=== PATIENT | female | born 1995 | race Two or more races ===

== ENCOUNTER 2017-02-21 19:35 | Emergency (ER) | payer BC ==
--- NOTE | ~2017-02-21 | EKG ---
PATIENT: SONG SOLIMAN UNIT #: [id number] Ventricular Rate: 93 BPM Atrial Rate: 93 BPM P-R Interval: 114 ms QRS Duration: 62 ms Q-T Interval: 318 ms QTC Calculation(Bezet): 395 ms P Gillham: 67 degrees Calculated R Gillham: 79 degrees Calculated T Gillham: 72 degrees Diagnosis Line: Normal sinus rhythm Diagnosis Line: Normal ECG Diagnosis Line: No previous ECGs available Diagnosis Line: Confirmed by DOC BRONSON MD ([id number]) on 02/22/2017 Diagnosis Line: 5:51:52 PM INTERPRETING MD: AIYANA OCASIO
--- NOTE | ~2017-02-21 | CT71 ---
[facility] A Service [facility] RADIOLOGY TEXT RESULTS PATIENT: SONG SOLIMAN LOCATION: SED : [birth year] UNIT #: [id number] AGE: [address]: Wolf Garay MD SEX: F ORDER DR: [id number] [place] [id number] E MR#: [id number] Acc #: [id number] NAME: SONG SOLIMAN : 1995 SEX: F STUDY DATE/TIME: 02/21/2017 20:44 UNIT: SED ROOM: STUDY DESCRIPTION: CT Head Wo Contrast Attending Physician: Wolf Garay M.D. Ordering Physician: Wolf Garay M.D. Primary Care Physician: No Primary Care Physician MEDICAL IMAGING REPORT This report is preliminary unless electronic signature is present. EXAM CT head, 02/21/2017. HISTORY Headache, syncope episode 17:[address] head performed of skull base through vertex without intravenous contrast. This CT exam was performed with one or more of the following radiation dose reduction techniques: automatic exposure control, adjustment of mA and/or kV according to patient size, and iterative reconstruction. COMPARISON No comparisons. FINDINGS Brainstem unremarkable. Cerebellum and cerebral hemispheres show normal joe matter-white matter differentiation. No hemorrhage. No evidence of acute cortical ischemia. Midline structures nondisplaced. Basal ganglia intact. Ventricles, cisterns and sulci normal in size and contour. No intra or extraaxial mass effect or abnormal intracranial fluid collection. Intraorbital soft tissues unremarkable. Visualized paranasal sinuses and mastoid air cells clear. No fracture. IMPRESSION 1. Normal CT head. If the patient has ongoing neurologic symptoms, consider follow up imaging. Dictated by... [facility] A Service [facility] RADIOLOGY TEXT RESULTS PATIENT: SONG SOLIMAN LOCATION: SED : [birth year] UNIT #: [id number] AGE: [address]: Wolf Garay MD SEX: F ORDER DR: Wolf West M.D. THIS IS AN ELECTRONICALLY VERIFIED REPORT Wolf West M.D. at 02/22/2017 5:58 PM GIUSEPPE/andres TD: 02/21/2017 22:39 JOB #: [id number] MEDICAL IMAGING REPORT Page 1 of 1
[2017-02-21] MEDS ORDERED: NO MEDICATIONS (19:47)
[2017-02-21 20:21] LABS: BASOPHIL% 0.5 % (0-2.5); EOSINOPHIL% 0.5 % (0.0-7.0); HEMATOCRIT 42.4 % (35.0-45.0); HEMOGLOBIN 14.2 gm/dL (12.0-16.0); LYMPHOCYTE# 1.6 X10e3 (1.0-3.5); MEAN CELL VOLUME 80.4 FL (83-96); MEAN CORPUSCULAR HEMOGLOBIN 26.9 PG (28-34); MEAN CORPUSCULAR HGB CONC 33.5 g/dL (30-36); MEAN PLATELET VOLUME 8.2 FL (6.5-11.5); MONOCYTE# 0.7 X10e3 (0-1.0); NEUTROPHIL# 5.2 X10e3 (1.5-7.1); PLATELET COUNT 250 X10e3 (140-420); RED BLOOD COUNT 5.27 X10e (3.90-5.30); RED CELL DISTRIBUTION WIDTH 13.6 % (11.0-15.5); WHITE BLOOD COUNT 7.6 X10e3 (4.0-10.5)
[2017-02-21 20:23] LABS: DIFF IND NO
[2017-02-21 20:39] LABS: CALCIUM SERUM 9.5 mg/dL (8.4-10.2); CREATININE SERUM 0.5 mg/dL (0.6-1.4); GLOM FILT RATE Estimated 137.4 mL/min (>60); POTASSIUM 3.4 mmol/L (3.5-5.1)
[2017-02-21 20:42] LABS: URINE SOURCE CLEAN CATCH
[2017-02-21 20:45] LABS: URINE APPEARANCE CLEAR; URINE BILIRUBIN NEG (NEG); URINE BLOOD TRACE-LYSED (NEG); URINE COLOR YELLOW; URINE GLUCOSE NEG (NORM); URINE KETONE NEG (NEG); URINE LEUKOCYTE ESTERASE NEG (NEG); URINE NITRATE NEG (NEG); URINE PROTEIN NEG (NEG); URINE UROBILINOGEN 0.2 MG/DL (NORM)
[2017-02-21 20:46] LABS: MICRO INDICATED? YES
[2017-02-21 20:50] LABS: CULTURE INDICATED? NO; URINE BACTERIA NEG (NEG); URINE MUCUS PRESENT; URINE SQUAMOUS EPITHELIAL CELL OCCAS /[HPF]; URINE TRANSITIONAL EPI CELLS FEW /[HPF]; URINE WBC 0-2 /[HPF] (0-5)
[2017-02-21 20:55] LABS: AMPHETAMINE NEG (NEG); BARBITURATES NEG (NEG); BENZODIAZEPINES NEG (NEG); COCAINE NEG (NEG); MARIJUANA NEG (NEG); OPIATES NEG (NEG); TRICYCLIC ANTIDEPRESSANTS NEG (NEG); U METHADONE NEG (NEG)
== END 2017-02-21 21:22 | disposition home or self-care (01) ==
LOC: SED 19:35
PROVIDERS: Emergency Medicine
DX: R51 Headache (principal); R55 Syncope and collapse
CPT/HCPCS: 70450; 80048; 80307; 81003; 84703; 85025; 96361; 96374; 96375; 99285; J0780; J1200